=== PATIENT | female | born 1990 ===

== ENCOUNTER 2018-09-23 11:29 | Emergency (ER) | payer MEDICAID ==
[2018-08-26 10:54] VITALS: BMI 32.3
--- NOTE | 2018-09-23 12:36 | OBHP ---
Datetime: 09/23/2018 11:00 IP Adm Impression: Term, intrauterine IP Admit Plan: Discharge home Admit Comment, IP Provider: HPI: 28 year old at 40.5, sent from [facility] due to concerns over her NS T today. Per verbal report there was a concern for potential late deceleration as well as frequent co ntractions. Patient reports she is feeling tightness in her abdomen fairly regularly but does not thi nk they feel like contractions. She also reports she was checked at the clinic today and was 2cm. Den ies LOF, vaginal bleeding. Reporting good movement. was dated by LMP, confirmed with 12 week US. Problems Gestational Diabetes A1 History 1 previous at 38 weeks, baby was 6 lbs 0oz, no complications PMH Denies PSH Denies Medications PNV Allergies NKDA Social Denies alcohol, tobacco, drug use Family History Non contributory OBJECTIVE See exam section NST from clinic reviewed - baseline FHR 150, + accels, 1-2 variable decelerations noted ASSESSMENT/PLAN: 28 year old at 40.5 here for NST. Per review of the NST from the clinic it w as reactive with no concerning findings. Her NST here was also reactive. Clay revealed ctx every 5-7 min, however they were not painful, so we did not repeat a cervical exam here in triage. She will be scheduled for IOL tomorrow evening due to GDMA1, as was the original plan. Patient was in ag reement with this plan and all questions were answered. Return precautions given. Patient in stable c ondition. Jeaneth Matias MD OB Fellow FHR - Baseline A Provider: 140 Gestation - Est Wks by US: 40.5 Vital Signs Provider: Reviewed; Within Normal Limits IP Chief Complaint: Uterine contractions NICHD Variability Prov Fetus A: Moderate 6-25bpm NICHD Accel Fetus A IP Provider: [id number] NICHD Decel Fetus A IP Provider: None
[2018-09-23 16:54] VITALS: BP 88/63; PULSE 80; RESP 18; TEMP 98.3
== END 2018-09-23 12:35 | disposition home or self-care (01) ==
LOC: H.EROB2 11:29 → H.EROB 11:30 → H.EROB2 12:35
DX: O26.93 Pregnancy related conditions, unspecified, third trimester (principal); R10.2 Pelvic and perineal pain; Z3A.40 40 weeks gestation of pregnancy; O48.0 Post-term pregnancy

== ENCOUNTER 2018-09-24 19:07 | Inpatient (IN) | payer MEDICAID ==
[2018-09-24 20:05] VITALS: BMI 30.2
[2018-09-24] MEDS ORDERED: Lactated Ringer's 1,000 ML IV ONE (20:05)
[2018-09-24] MEDS ORDERED: Lactated Ringer's 1,000 ML IV SCH (20:15)
[2018-09-24 20:38] LABS: BASO % 0.4 % (0.0-2.0); EOS # 0.1 K/uL (0.0-0.7); EOS % 0.9 % (0.0-4.0); HEMOGLOBIN 11.9 g/dL (12.0-16.0); LYMPH # 2.6 K/uL (1.0-4.3); MEAN CELL VOLUME 84.9 fl (81.0-99.0); MEAN CORPUSCULAR HEMOGLOBIN 28.1 pg (27.0-31.0); MEAN CORPUSCULAR HGB CONC 33.1 g/dL (33.0-37.0); MEAN PLATELET VOLUME 9.3 fl (7.2-11.7); MONO # 0.5 K/uL (0.0-0.8); MONO % 5.2 % (0.0-10.0); NEUT # 7.2 K/uL (1.8-7.0); NEUT % 68.5 % (50.0-75.0); NRBC % 0.1 % (0.0-0.0); RBC 4.23 Mil/uL (3.80-5.20); RED CELL DISTRIBUTION WIDTH 14.3 % (11.5-14.5); WHITE BLOOD COUNT 10.5 K/uL (4.8-10.8)
[2018-09-25] MEDS ORDERED: Nalbuphine HCL 10 mg/ml Ampule IVP PRN (04:33)
[2018-09-25] MEDS ORDERED: Oxytocin 30 UNIT 30 UNITS/500 ML BAG IV ONE (04:59)
[2018-09-25] MEDS ORDERED: OXYTOCIN/0.9 % NS 20 UNIT/1,000 ML BAG IV ONE (04:59)
[2018-09-25] MEDS ORDERED: Lactated Ringer's 1,000 ML IV SCH (05:00)
[2018-09-25] MEDS ORDERED: Fentanyl/Bupivacaine HCl 250 ML EPI ONE (05:11)
[2018-09-25] MEDS ORDERED: Lidocaine 1% Inj (20ml) ONE (07:51)
[2018-09-25] MEDS ORDERED: Benzocaine/Menthol SPRAY TOP PRN (07:55)
[2018-09-25] MEDS ORDERED: Oxycodone/Acetaminophen 5/325 mg Tab PO PRN ×2 (07:55→11:33)
[2018-09-25] MEDS ORDERED: Multivitamin With Minerals Tab PO SCH (09:00)
[2018-09-25] MEDS: Benzocaine/Menthol SPRAY TOP PRN (16:05)
[2018-09-26 08:04] LABS: BASO # 0.1 K/uL (0.0-0.2); BASO % 0.6 % (0.0-2.0); EOS # 0.1 K/uL (0.0-0.7); EOS % 1.1 % (0.0-4.0); HEMOGLOBIN 11.6 g/dL (12.0-16.0); LYMPH # 2.4 K/uL (1.0-4.3); LYMPH % 24.3 % (20.0-40.0); MEAN CORPUSCULAR HEMOGLOBIN 28.8 pg (27.0-31.0); MEAN CORPUSCULAR HGB CONC 33.5 g/dL (33.0-37.0); MEAN PLATELET VOLUME 8.7 fl (7.2-11.7); MONO # 0.5 K/uL (0.0-0.8); MONO % 5.1 % (0.0-10.0); NEUT # 6.7 K/uL (1.8-7.0); NEUT % 68.9 % (50.0-75.0); NRBC % 0.1 % (0.0-0.0); RBC 4.01 Mil/uL (3.80-5.20); RED CELL DISTRIBUTION WIDTH 14.5 % (11.5-14.5); WHITE BLOOD COUNT 9.7 K/uL (4.8-10.8)
[2018-09-26] MEDS: Prenatal Multivit/Folic Acid/Iron Tab PO SCH (08:08)
[2018-09-26] MEDS ORDERED: Multivitamin With Minerals Tab PO SCH (09:00)
[2018-09-27] MEDS: Prenatal Multivit/Folic Acid/Iron Tab PO SCH (08:48)
[2018-09-27] MEDS: Benzocaine/Menthol SPRAY TOP PRN (08:52)
--- NOTE | 2018-09-27 09:25 | OBDS ---
DELIVERY PERSONNEL Delivery Doctor: Karen Roldan MD Commercial Real Estate Appraiser: Olimpia Ahumada RN, loza rn Anesthesiologist: Ashley Smart MD/ jeffy Resident: dean rodney MATERNAL INFORMATION Delivery Anesthesia: Local; Epidural Medications in Delivery: pitocin 30 units Estimated Blood Loss (ml): 200 Placenta Cultured: No Maternal Complications: None Provider Comments: . Pt delivered viable infant with apgars 9/9. JASON position. Tight nuchal cord x 1 reduced. Placen ta delivered spontaneously. Lac repaired, as above. Uterus firm and approp hemostatic following del taty. Pt tolerated delivery and repair well. No complications. EBL 300cc. LABOR SUMMARY EDC: 09/18/2018 00:00 No. Babies in Womb: 1 Attempted: No Labor Anesthesia: Epidural LABOR INFORMATION Onset of Labor: 09/24/2018 23:00 Complete Dilatation: 09/25/2018 07:35 Cervical Ripening Agents: Cervidil (Annotations: Cervidil inserted by Dr. Bales ) Group B Beta Strep: Negative Steroids Given: < 24 Hours before Delivery MEMBRANES Membranes Rupture Method: Spontaneous Rupture of Membranes: 09/25/2018 04:00 Length of Rupture (hrs): 3.68 Amniotic Fluid Color: Clear Amniotic Fluid Amount: Moderate Amniotic Fluid Odor: Normal STAGES OF LABOR Stage 1 hrs: 8 Stage 1 min: 35 Stage 2 hrs: 0 Stage 2 min: 6 Stage 3 hrs: 0 Stage 3 min: 9 Total Time in Labor hrs: 8 Total Time in Labor min: 50 VAGINAL DELIVERY Episiotomy: None Laceration Extension: First Degree Laceration Type: Vaginal Laceration Repair: Yes Laceration Repair Note: First degree midline perineal laceration. Area infiltrated with 1% lido. L ac repaired with 2.0 rapide without complication. Pt tolerated well. Initial Vag Sponge Count: 10 Final Vag Sponge Count: 10 Initial Vag Sharps Count: 2 Final Vag Sharps Count: 2 Sponge Count Correct: Yes Sharps Count Correct: Yes Count Comment: correct BABY A INFORMATION Delivery Date/Time: 09/25/2018 07:41 Method of Delivery: Vaginal Born in Route : Yes : N/A Forceps: N/A Vacuum Extraction: N/A Shoulder Dystocia : No SHOULDER DYSTOCIA BABY A Delivery Date/Time: 09/25/2018 07:41 PRESENTATION/POSITION BABY A Presentation: Cephalic Cephalic Presentation: Vertex Vertex Position: Left Occipital Anterior Breech Presentation: N/A PLACENTA INFORMATION BABY A Placenta Delivery Time : 09/25/2018 07:50 Placenta Method of Delivery: Spontaneous Placenta Status: Delivered SCORES BABY A Heart Rate 1 min: >100 bpm Resp Effort 1 min: Good Cry Reflex Irritability 1 min: Cough or Sneeze or Pulls Away Muscle Tone 1 min: Active Motion Color 1 min: Body [place], Extremities Blue Resuscitation Effort 1 min: Tactile Stimulation SCORE 1 MIN: 9 Heart Rate 5 min: >100 bpm Resp Effort 5 min: Good Cry Reflex Irritability 5 min: Cough or Sneeze or Pulls Away Muscle Tone 5 min: Active Motion Color 5 min: Body [place], Extremities Blue SCORE 5 MIN: 9 Heart Rate 10 min: >100 bpm Resp Effort 10 min: Good Cry Reflex Irritability 10 min: Cough or Sneeze or Pulls Away Muscle Tone 10 min: Active Motion Color 10 min: Completely [place] SCORE 10 MIN: 10 INFORMATION BABY A Gestational Age at Delivery: 41.0 Gestational Status: Term Infant Outcome : Liveborn Infant Condition : Stable Sex: Female IDENTIFICATION/MEDS BABY A ID Band Number: [id number] ID Band Location: Left Leg; Left Arm WEIGHT/LENGTH BABY A Birthweight (gms): 3350 Weight (lb): 7 Weight (oz): 6 CORD INFORMATION BABY A No. Cord Vessels: 3 Nuchal Cord : Around Neck x1, Tight Nuchal Cord Other: no True Knot: no Cord pH Baby Arterial: yes Cord Blood Taken: Yes Banking/Donate Info: none Infant Suction: Mouth; Nose ASSESSMENT BABY A Complications: None Physical Findings at Delivery: Within Normal Limits Infant Respirations: Appears Normal Drone Pilot/ALS Called : Yes Infant Care By: dr kay assesst the baby / olimpia ahumada / grady elliott rn Transferred To: Remains with Mother
--- NOTE | 2018-09-27 09:28 | OBDS ---
DELIVERY PERSONNEL Delivery Doctor: Karen Roldan MD Developmental Services Worker: Olimpia Ahumada RN, loza rn Anesthesiologist: Ashley Smart MD/ jeffy Resident: dean rodney MATERNAL INFORMATION Delivery Anesthesia: Local; Epidural Medications in Delivery: pitocin 30 units Estimated Blood Loss (ml): 200 Placenta Cultured: No Maternal Complications: None Provider Comments: . Pt delivered viable infant with apgars 9/9. JASON position. Tight nuchal cord x 1 reduced. Placen ta delivered spontaneously. Lac repaired, as above. Uterus firm and approp hemostatic following del taty. Pt tolerated delivery and repair well. No complications. EBL 300cc. LABOR SUMMARY EDC: 09/18/2018 00:00 No. Babies in Womb: 1 Attempted: No Labor Anesthesia: Epidural LABOR INFORMATION Onset of Labor: 09/24/2018 23:00 Complete Dilatation: 09/25/2018 07:35 Cervical Ripening Agents: Cervidil (Annotations: Cervidil inserted by Dr. Bales ) Group B Beta Strep: Negative Steroids Given: < 24 Hours before Delivery MEMBRANES Membranes Rupture Method: Spontaneous Membranes Rupture Method: Spontaneous Membranes Rupture Method: Spontaneous Membranes Rupture Method: Spontaneous Membranes Rupture Method: Spontaneous Membranes Rupture Method: Spontaneous Rupture of Membranes: 09/25/2018 04:00 Length of Rupture (hrs): 3.68 Amniotic Fluid Color: Clear Amniotic Fluid Color: Clear Amniotic Fluid Color: Clear Amniotic Fluid Color: Clear Amniotic Fluid Color: Clear Amniotic Fluid Color: Clear Amniotic Fluid Amount: Moderate Amniotic Fluid Amount: Moderate Amniotic Fluid Amount: Moderate Amniotic Fluid Amount: Moderate Amniotic Fluid Amount: Moderate Amniotic Fluid Amount: Small Amniotic Fluid Odor: Normal STAGES OF LABOR Stage 1 hrs: 8 Stage 1 min: 35 Stage 2 hrs: 0 Stage 2 min: 6 Stage 3 hrs: 0 Stage 3 min: 9 Total Time in Labor hrs: 8 Total Time in Labor min: 50 VAGINAL DELIVERY Episiotomy: None Laceration Extension: First Degree Laceration Type: Vaginal Laceration Repair: Yes Laceration Repair Note: First degree midline perineal laceration. Area infiltrated with 1% lido. L ac repaired with 2.0 rapide without complication. Pt tolerated well. Initial Vag Sponge Count: 10 Final Vag Sponge Count: 10 Initial Vag Sharps Count: 2 Final Vag Sharps Count: 2 Sponge Count Correct: Yes Sharps Count Correct: Yes Count Comment: correct BABY A INFORMATION Delivery Date/Time: 09/25/2018 07:41 Method of Delivery: Vaginal Born in Route : Yes : N/A Forceps: N/A Vacuum Extraction: N/A Shoulder Dystocia : No SHOULDER DYSTOCIA BABY A Delivery Date/Time: 09/25/2018 07:41 PRESENTATION/POSITION BABY A Presentation: Cephalic Cephalic Presentation: Vertex Vertex Position: Left Occipital Anterior Breech Presentation: N/A PLACENTA INFORMATION BABY A Placenta Delivery Time : 09/25/2018 07:50 Placenta Method of Delivery: Spontaneous Placenta Status: Delivered SCORES BABY A Heart Rate 1 min: >100 bpm Resp Effort 1 min: Good Cry Reflex Irritability 1 min: Cough or Sneeze or Pulls Away Muscle Tone 1 min: Active Motion Color 1 min: Body [place], Extremities Blue Resuscitation Effort 1 min: Tactile Stimulation SCORE 1 MIN: 9 Heart Rate 5 min: >100 bpm Resp Effort 5 min: Good Cry Reflex Irritability 5 min: Cough or Sneeze or Pulls Away Muscle Tone 5 min: Active Motion Color 5 min: Body [place], Extremities Blue SCORE 5 MIN: 9 Heart Rate 10 min: >100 bpm Resp Effort 10 min: Good Cry Reflex Irritability 10 min: Cough or Sneeze or Pulls Away Muscle Tone 10 min: Active Motion Color 10 min: Completely [place] SCORE 10 MIN: 10 INFANT INFORMATION BABY A Gestational Age at Delivery: 41.0 Gestational Status: Term Infant Outcome : Liveborn Condition : Stable Sex: Female IDENTIFICATION/MEDS BABY A ID Band Number: [id number] ID Band Location: Left Leg; Left Arm WEIGHT/LENGTH BABY A Birthweight (gms): 3350 Infant Weight (lb): 7 Infant Weight (oz): 6 CORD INFORMATION BABY A No. Cord Vessels: 3 Nuchal Cord : Around Neck x1, Tight Nuchal Cord Other: no True Knot: no Infant Cord pH Baby Arterial: yes Cord Blood Taken: Yes Banking/Donate Info: none Suction: Mouth; Nose ASSESSMENT BABY A Complications: None Physical Findings at Delivery: Within Normal Limits Respirations: Appears Normal Car Rental Service Attendant/ALS Called : Yes Infant Care By: dr kay assesst the baby / olimpia ahumada / grady elliott rn Transferred To: Remains with Mother
[2018-09-27 18:09] VITALS: BP 103/67; PULSE 82; RESP 20; TEMP 98; O2SAT 100
--- NOTE | 2018-09-27 18:15 | OBPPN ---
Datetime: 09/27/2018 10:50 PP Pain Prov: Within normal limits PP Nausea Prov: Denies PP Flatus Prov: Yes PP BM Prov: Yes PP Breasts Prov: Not Done PP Heart Prov: Normal PP Lungs Prov: Normal PP Abdomen/Uterus Prov: Normal PP Lochia Prov: Normal PP Vulva/Perineum Prov: Normal PP CVA Tenderness Prov: Normal PP Extremities Prov: Normal PP Impression Prov: Normal progression PP Plan Prov: Continue present management; Discharge PP Progress Note Prov: S: Patient seen this morning at bedside, she is now s/p on , today is PPD 2. Pt reports no complaints today. Reports minimal abdominal pain but states is bett er with pain medication. She is tolerating PO intake w/o N/V, ambulating to bathroom without any diff iculties, lochia is less than menses in volume, Breast feeding w/o difficulty and supplementing with formula. Patient reports flatus and a BM early this morning. O: VS WNL PE: Patient is resting comfortably in her hospital bed. In no acute distress. HEENT: Mucous membrane moist. RESP: Clear air entry bilaterally. CV: RRR, no murmurs, gallops or rubs. ABD: soft, non-tender, uterus firm below umbilicus LE: No edema, Yenny's negative. A/P: 28 y/o now s/p on 09/25/18, today is PPD2- normal post- progression. Patien t is stable to be D/C home. - Encourage ambulation - Encourage to continue - PNV 1 tab PO daily - Ibuprofen 600mg 1 tab Q6h prn for mild-mod pain - D/C home today, 09/25/18 Kacy Avendano MD PGY1. Attending Note: Patient was discussed with Resident and I agree with the above Vital Signs Provider PP: Reviewed; Within Normal Limits Datetime: 09/26/2018 06:30 PP C/S Incision Prov: Not Applicable PP Progress Prov: Normal
--- NOTE | 2018-09-29 11:36 | OBDCSUM ---
Datetime: 09/27/2018 09:47 Discharged to, Provider: Home Follow up at, Provider: Disch Instr Activity: Normal activity Disch Instr Diet: Regular Discharge Instructions, Provider: Routine instructions given Discharge Diagnosis, Provider: Term Delivered Discharge Time: 09/27/2018 10:00 Follow up in weeks, Provider: 6 weeks Disch Referrals: None Contraception discussed, Prov: Yes Disch Activity Restrictions: No exercising; No sexual activity; Nothing in vagina - [place], maryann devine Discharge Comment, Provider: Diagnosis: 28 y/o s/p of a baby girl on 09/25/18 at 7:41 am with EGA: 40.6 weeks at time of delivery : Female, Wt. 3350 gm, 9/9. Post- D/C Summary: No OB complications. No complications during post- period. Lochia i s less than menses. Pt able to pass flatus, voiding well and able to ambulate but no BM yet. Tolerate regular diet w/o N/V. Fundus firm below umbilicus level. Pt is hemodynamically stable. H/H : 11.6/34.5 Discharge Date: 09/27/2017 Time 10:00 AM Discharge Instructions given to patient: Encourage PNV 1 tab PO daily May take Ibuprofen 600mg Q 6h prn for mild-mod pain if needed ED precautions: If excessive bleeding, pain that does not get relief, fever >100.4, palpitations, SOB, CP or other concerning symptom go to the ED PT was urged if feeling sad, mood swing, depression, neglect of baby, suicidal thoughts, homicidal thoughts go to ER or call 911 for help Pt should go to her Primary care doctor if have difficulty with breast feeding F/U in 4-6 week for PP visit with PMD. --- Kacy Avendano MD PGY-1. Attending: Discharge was discussed with the resident and I agree with the above. Contraception after Delivery: Not Planning to Use
--- NOTE | 2018-09-29 14:41 | OBHP ---
Datetime: 09/25/2018 04:54 FHR - Baseline A Provider: 140s Amniotic Fluid Color, Provider: Clear Membranes, Provider: Ruptured Contraction Comments Provider: Q3-4 mins Gestation - Est Wks by US: 41.0 Vital Signs Provider: Reviewed; Within Normal Limits NICHD Variability Prov Fetus A: Moderate 6-25bpm NICHD Accel Fetus A IP Provider: [id number] NICHD Decel Fetus A IP Provider: None Dilatation, Provider: 4 Datetime: 09/24/2018 19:00 IP Adm Impression: Term, intrauterine ; Active labor IP Admit Plan: Admit to unit; Initiate labor induction protocol Admit Comment, IP Provider: 28 y/o female w/ pmhx of GDM controlled w/ diet at 40.6 wk GA ad mitted to L_D for IOL due to GDM. Patient reports movement, no vaginal bleeding, no leakage of fluid. OB: Dr. Santamaria pmhx: denies Obhx: NSVDx1, 1 miscarriage homerx: vitamins Socialhx: denies alcohol tobacco use FamHx: non-contributory Surghx: denies [place]: NKDA ROS negative except per HPI Physical Exam: Gen: comfortable, no acute distress Heart: S1 S2 present, RRR Lungs: normal resp effort, clear to auscultation bilatreally Abd: gravid, soft, non-tender Extremities: no pedal edema, erythema, or tenderness Impression and Plan: 28 y/o female w/ hx of GDM at 40.6 WK IUP Patient scheduled for induction of labor GBS neg, HIV neg, RPR neg, HBsAg neg Admit to L_D CBC, type and screen 1L LR IV bolus, 1L LR IV @125 mL/hr Cervidil 10mg Vag x1 [place] and NST monitoring Can have epidural; anesthesiology consulted Case discussed w/ attending, Dr. Jamar Bales, PGYI Pelvic Type - PN: Adequate Extremities - PN: Normal Abdomen - PN: Not Done Back - PN: Not Done Breast - PN: Not Done Lungs - PN: Normal Heart - PN: Normal Thyroid - PN: Not Done Neurologic - PN: Not Done HEENT - PN: Not Done General - PN: Normal IP Hx Assessment: The History has been Reviewed and is Current EGA AdmitDate IP: 40.6 IP Indication for Induction: Maternal Diabetes IP Chief Complaint: Scheduled induction of labor Effacement, Provider: thick Station, Provider: high Genitourinary Exam: Normal DTRs - PN: Not Done
== END 2018-09-27 11:05 | disposition home or self-care (01) | DRG 373 ==
LOC: H.EROB2 19:07 → H.ER 19:07 → H.L&D 20:05 → H.OB/GYN 09-25 10:42
PROVIDERS: ADMIT Obstetrics & Gynecology; ATTEND Obstetrics & Gynecology
PROC: 4A1HXCZ Monitoring of Products of Conception, Cardiac Rate, External Approach (ICD-10-PCS; 2018-09-24)
PROC: 0HQ9XZZ Repair Perineum Skin, External Approach (ICD-10-PCS; principal; 2018-09-25)
PROC: 10E0XZZ Delivery of Products of Conception, External Approach (ICD-10-PCS; 2018-09-25)
DX: O70.0 First degree perineal laceration during delivery (principal); Z37.0 Single live birth; O69.1XX0 Labor and delivery complicated by cord around neck, with compression, not applicable or unspecified; Z86.32 Personal history of gestational diabetes; Z3A.41 41 weeks gestation of pregnancy